=== PATIENT | male | born 1955 | race Caucasian/White ===

== ENCOUNTER → 2018-05-27 10:52 | Outpatient (CLI) | payer OTHER, SELFPAY ==
[2018-05-27 11:38] LABS: Add Manual Diff / Slide Review NO; Basophils Absolute Auto 0 /uL (0-100); Eosinophils Absolute Auto 100 /uL (0-450); Eosinophils Percent Auto 2.2 % (2-4); Hematocrit 43.1 % (41-53); Hemoglobin 14.7 g/dL (13.5-17.5); Lymphocytes Absolute Auto 1500 /uL (1100-4500); Lymphocytes Percent Auto 34.4 % (25-40); Mean Corpuscular HGB Conc 34.1 % (30-36); Mean Corpuscular Volume 87.9 fL (80-100); Monocytes Absolute Auto 400 /uL (0-900); Monocytes Percent Auto 9.5 % (3-14); Neutrophils Absolute Auto 2300 /uL (1500-7000); Neutrophils Percent Auto 52.9 % (50-75); Platelet Count 210 X10^3/uL (150-400); Red Cell Distribution Width 13.4 % (11.6-14.8); White Blood Cell Count 4.4 X10^3/uL (4.5-11.0)
[2018-05-27 12:04] LABS: Alanine Aminotransferase 41 IU/L (21-72); Albumin 4.8 g/dL (3.5-5.0); Albumin Globulin Ratio 1.5 (1.0-2.8); Alkaline Phosphatase 96 U/L (38-126); Aspartate Aminotransferase 37 IU/L (17-59); BUN Creatinine Ratio 12.2 (6-22); Bilirubin Total 1.7 mg/dL (0.2-1.3); Blood Urea Nitrogen 11 mg/dL (9-20); Calcium 9.2 mg/dL (8.4-10.2); Carbon Dioxide 28 mmol/L (22-32); Chloride 101 mmol/L (98-107); Cholesterol 157 mg/dL (140-199); Estimated Glomerular Filt Rate > 60.0 mL/min (>60); Globulin 3.1 g/dL (1.7-4.1); Glucose 123 mg/dL (80-110); HDL Cholesterol 64 mg/dL (40-60); HEMOLYSIS < 15 (0-50); LDL Cholesterol Calculated 75 mg/dL (<100); Potassium 3.8 mmol/L (3.4-5.1); Sodium 139 mmol/L (137-145); Total Protein 7.9 g/dL (6.3-8.2); Triglycerides 92 mg/dL (35-150)
[2018-05-27 12:33] LABS: Prostate Specific Antigen Scrn 0.536 ng/mL (0.1-4.0)
[2018-05-27 12:34] LABS: Thyroid Stimulating Hormone 0.32 uIU/mL (0.47-4.68)
== END ==
PROVIDERS: Family Provider Family Medicine; PCP Family Medicine; Visit Provider Family Medicine
DX: E78.2 Mixed hyperlipidemia (principal)
CPT/HCPCS: 36415; 80053; 80061; 84443; 85025; G0103

== ENCOUNTER → 2018-07-28 10:55 | Outpatient (CLI) | payer OTHER, SELFPAY ==
[2018-07-28 12:18] LABS: BUN Creatinine Ratio 13.3 (6-22); Blood Urea Nitrogen 12 mg/dL (9-20); Calcium 9.3 mg/dL (8.4-10.2); Carbon Dioxide 31 mmol/L (22-32); Chloride 104 mmol/L (98-107); Estimated Glomerular Filt Rate > 60.0 mL/min (>60); Glucose 101 mg/dL (80-110); HEMOLYSIS < 15 (0-50); Sodium 142 mmol/L (137-145)
[2018-07-28 12:52] LABS: Thyroid Stimulating Hormone 2.76 uIU/mL (0.47-4.68)
== END ==
PROVIDERS: Family Provider Family Medicine; PCP Family Medicine; Visit Provider Family Medicine
DX: E03.9 Hypothyroidism, unspecified (principal)
CPT/HCPCS: 36415; 80048; 84443

== ENCOUNTER → 2018-10-28 10:40 | Outpatient (CLI) | payer OTHER, SELFPAY ==
[2018-10-28 14:08] LABS: Thyroid Stimulating Hormone 6.66 uIU/mL (0.47-4.68)
== END ==
PROVIDERS: PCP Family Medicine; Visit Provider Family Medicine
DX: E03.9 Hypothyroidism, unspecified (principal)
CPT/HCPCS: 36415; 84443

== ENCOUNTER 2018-11-16 12:06 | Day surgery (SDC) | payer OTHER, SELFPAY ==
--- NOTE | 2018-11-16 | PATH_ITS ---
[facility] Accession Number: [id number] . 01 Material submitted: . colon - DESCENDING COLON POLYP AT 50CN . 02 Diagnosis: Descending Colon at 50 cm, Polyp: Tubular adenoma. MRV 11/17/2018 0946 Local . 02 Electronically signed: . Cecil Brewer MD, PhD, Pathologist NPI- [id number] . 01 Gross description: . DESCENDING COLON POLYP AT 50CN: Received in formalin is 1 fragment(s) of feng, soft tissue measuring 0.4 x 0.3 x 0.3 cm which is entirely submitted and submitted entirely in 1 cassette(s) /[facility] 11/16/2018 2111 Local . 02 Pathologist provided ICD-10: D12.4 . 02 CPT . 112519 Performed at: 01 [facility] [address] [id number] MD Jesús Moeller MD Phone: [phone] Performed at: 02 [facility] [place] [address] [place], [place] [id number] MD Natalee Cordova MD Phone: [phone]
[2018-11-16 12:43] VITALS: BP 157/101; PULSE 89; RESP 14; TEMP 36.4; O2SAT 94; BMI 26.6
[2018-11-16] MEDS: SODIUM CHLORIDE 0.9% 1,000 ML 200 ML IV (12:43)
--- NOTE | 2018-11-16 13:18 | PM.HP.1 ---
History of Present Illness History of Present Illness Date Patient Seen: 11/16/18 Time Patient Seen: 13:19 Chief complaint: [id number] SCREENING COLONOSCOPY Narrative: 63-year-old white male with 1 prior colonoscopy is unsure as to whether he has had any polyps in the past is here for screening colonoscopy. Patient is asymptomatic. Patient History Surgical History History of vasectomy Status post hemorrhoidectomy Social History household members: none Smoking Status: Never smoker Family & Social History Social History: household members none Tobacco & Substance use: Smoking Status Never smoker Meds Home Medications and Allergies Home Medications Medication Instructions Recorded Confirmed Type lisinopril 10 mg tablet 10 mg PO DAILY #90 tab 07/28/18 11/16/18 Rx rosuvastatin 20 mg tablet See Rx Instructions PO QDAY #90 tab 07/28/18 11/16/18 Rx lansoprazole 15 mg capsule,delayed 15 mg PO Q DAY #90 tab 09/28/18 11/16/18 Rx release levothyroxine 125 mcg tablet 125 mcg PO DAILY #90 tab 10/28/18 11/16/18 Rx clonazepam 0.5 mg PO DIRECTED 11/16/18 11/16/18 History Allergies Allergy/AdvReac Type Severity Reaction Status Date / Time No Known Drug Allergies Allergy Verified 11/16/18 12:50 Review of Systems Review of Systems ROS Unobtainable: All systems reviewed & are unremarkable except as noted in HPI and below Exam Vital Signs (past 8 hours): - 11/16/18 12:43 Temperature 97.6 F Pulse Rate 89 Respiratory Rate 14 Blood Pressure 157/101 H Pulse Oximetry 94 Oxygen Delivery Method Room Air Narrative Exam Narrative: Patient is alert and oriented with no complaints Lungs are clear with no rales or wheezes Heart regular rhythm no murmur Abdomen soft nontender no organomegaly no masses Rectal will be done at time of colonoscopy Assessment & Plan Assessment & Plan narrative: Asymptomatic patient here for a screening colonoscopy has no further questions he has had a prior colonoscopy
--- NOTE | 2018-11-16 13:52 | PM.OP.ENDO ---
Operative Date/Time/Diagnoses Date of procedure: 11/16/18 Time of procedure: 13:53 Pre-op diagnosis: Screening colonoscopy Post-op diagnosis: other (Polyp removed at 50 cm and submitted) Procedure & Clinicians Study performed: Total colonoscopy to the cecum with polypectomy at 50 cm Same procedure as scheduled: Yes Surgeon: Pedro Pablo Huffman Procedure Notes SCOAP/Timeout: This was done Procedure in detail: The patient was properly identified during surgical pause given a total of 4 mg of Versed and 200 micro g of fentanyl and remained comfortable throughout the procedure. The flexible fiberoptic colonoscope was inserted transanally to the cecum. Patient had 1 polyp identified at 50 cm which was removed with a cold snare retrieved and submitted. This was a 5-6 mm polyp in and appeared entirely benign. There was minimal bleeding with the polypectomy. Scope withdrawal time: 15 Sedation minutes: 25 Findings: polyp Specimen(s): other (Polyp at 50 cm) Complications: none Post-procedure Recommendations: Colonscopy in 3 years
[2018-11-16 13:59] VITALS: BP 126/81; PULSE 60; RESP 14; TEMP 36.6; O2SAT 95
[2018-11-16] MEDS: MIDAZOLAM 5 MG/5 ML VIAL IV (13:59)
[2018-11-16] MEDS: fentaNYL 250 MCG/5 ML INJ IV (14:00)
[2018-11-16 14:05] VITALS: BP 122/82; PULSE 60; RESP 14; O2SAT 93
[2018-11-16 14:10] VITALS: BP 117/83; PULSE 54; RESP 14; O2SAT 93
[2018-11-16 14:32] VITALS: BP 134/87; PULSE 54; RESP 16; TEMP 36.2; O2SAT 95
== END 2018-11-16 14:37 | disposition home or self-care (01) ==
PROVIDERS: Family Provider Family Medicine; PCP Family Medicine; Visit Provider Surgery
PROC: 0DJD8ZZ Inspection of Lower Intestinal Tract, Via Natural or Artificial Opening Endoscopic (ICD-10-PCS; CPT 45378; principal; 2018-11-16 13:45)
DX: Z12.11 Encounter for screening for malignant neoplasm of colon (principal); D12.4 Benign neoplasm of descending colon
CPT/HCPCS: 45385; 99152; J2250; J3010

== ENCOUNTER → 2018-12-28 13:11 | Outpatient (CLI) | payer OTHER, SELFPAY | PROVIDERS: PCP Family Medicine; Visit Provider Family Medicine | DX: E03.9 Hypothyroidism, unspecified (principal) | CPT/HCPCS: 36415; 84443 ==

== ENCOUNTER → 2020-01-11 07:08 | Outpatient (CLI) | payer MEDICARE, OTHER, SELFPAY ==
[2020-01-11 08:07] LABS: Add Manual Diff / Slide Review NO; Basophils Absolute Auto 100 /uL (0-100); Basophils Percent Auto 1.3 % (0-2); Eosinophils Absolute Auto 400 /uL (0-450); Eosinophils Percent Auto 7.8 % (2-4); Hematocrit 41.8 % (41-53); Lymphocytes Absolute Auto 2000 /uL (1100-4500); Lymphocytes Percent Auto 44.2 % (25-40); Mean Corpuscular HGB Conc 33.6 % (30-36); Mean Corpuscular Hemoglobin 30.1 PG (26-34); Mean Corpuscular Volume 89.8 fL (80-100); Monocytes Absolute Auto 500 /uL (0-900); Monocytes Percent Auto 12.1 % (3-14); Neutrophils Absolute Auto 1600 /uL (1500-7000); Neutrophils Percent Auto 34.6 % (50-75); Platelet Count 183 X10^3/uL (150-400); Red Blood Cell Count 4.66 X10^6/uL (4.5-5.9); Red Cell Distribution Width 13.1 % (11.6-14.8); White Blood Cell Count 4.5 X10^3/uL (4.5-11.0)
[2020-01-11 08:19] LABS: Alanine Aminotransferase 33 IU/L (<50); Albumin 4.2 g/dL (3.5-5.0); Albumin Globulin Ratio 1.4 (1.0-2.8); Alkaline Phosphatase 78 U/L (38-126); Aspartate Aminotransferase 34 IU/L (17-59); BUN Creatinine Ratio 18.1 (6-22); Bilirubin Total 1.1 mg/dL (0.2-1.3); Blood Urea Nitrogen 17 mg/dL (9-20); Carbon Dioxide 33 mmol/L (22-32); Chloride 103 mmol/L (98-107); Cholesterol 177 mg/dL (140-199); Estimated Glomerular Filt Rate > 60.0 mL/min (>60); Globulin 2.9 g/dL (1.7-4.1); Glucose 140 mg/dL (80-110); HDL Cholesterol 53 mg/dL (40-60); HEMOLYSIS < 15 (0-50); LDL Cholesterol Calculated 103 mg/dL (<100); Potassium 4.3 mmol/L (3.4-5.1); Sodium 139 mmol/L (137-145); Total Protein 7.1 g/dL (6.3-8.2); Triglycerides 107 mg/dL (35-150)
[2020-01-11 08:47] LABS: Prostate Specific Antigen Scrn 0.498 ng/mL (0.1-4.0)
[2020-01-11 09:13] LABS: Thyroid Stimulating Hormone 2.26 uIU/mL (0.47-4.68)
== END ==
PROVIDERS: PCP Family Medicine; Referring Provider Family Medicine; Visit Provider Family Medicine
DX: E03.9 Hypothyroidism, unspecified (principal); Z12.5 Encounter for screening for malignant neoplasm of prostate; E78.2 Mixed hyperlipidemia
CPT/HCPCS: 36415; 80053; 80061; 84443; 85025; G0103

== ENCOUNTER → 2020-01-13 10:52 | Outpatient (CLI) | payer MEDICARE, OTHER, SELFPAY ==
[2020-01-14 02:26] LABS: Hemoglobin A1C% w Est Avg Glu 6.5 % (4.0-6.0)
== END ==
PROVIDERS: PCP Family Medicine; Visit Provider Family Medicine
DX: R73.9 Hyperglycemia, unspecified (principal)
CPT/HCPCS: 83036

== ENCOUNTER → 2021-08-07 08:25 | Outpatient (CLI) | payer MEDICARE, OTHER, SELFPAY ==
[2021-08-07 09:57] LABS: Hemoglobin A1C% w Est Avg Glu 6.3 % (4.0-6.0)
[2021-08-07 10:20] LABS: Alanine Aminotransferase 34 IU/L (<50); Albumin 4.3 g/dL (3.5-5.0); Albumin Globulin Ratio 1.4 (1.0-2.8); Alkaline Phosphatase 78 U/L (38-126); Aspartate Aminotransferase 38 IU/L (17-59); BUN Creatinine Ratio 20.8 (6-22); Bilirubin Total 0.9 mg/dL (0.2-1.3); Blood Urea Nitrogen 21 mg/dL (9-20); Calcium 8.5 mg/dL (8.4-10.2); Carbon Dioxide 27 mmol/L (22-32); Chloride 105 mmol/L (98-107); Cholesterol 194 mg/dL (140-199); Estimated Glomerular Filt Rate > 60 mL/min (>60); Glucose 141 mg/dL (80-110); HDL Cholesterol 58 mg/dL (40-60); HEMOLYSIS < 15 (0-50); LDL Cholesterol Calculated 113 mg/dL (<100); Potassium 4.1 mmol/L (3.4-5.1); Sodium 140 mmol/L (137-145); Total Protein 7.3 g/dL (6.3-8.2); Triglycerides 116 mg/dL (35-150)
[2021-08-07 10:46] LABS: Prostate Specific Antigen Scrn 0.568 ng/mL (0.1-4.0)
[2021-08-07 10:48] LABS: Thyroid Stimulating Hormone 1.75 uIU/mL (0.47-4.68)
== END ==
PROVIDERS: PCP Family Medicine; Referring Provider Family Medicine; Visit Provider Family Medicine
DX: R73.9 Hyperglycemia, unspecified (principal); I10 Essential (primary) hypertension; Z12.5 Encounter for screening for malignant neoplasm of prostate; E03.9 Hypothyroidism, unspecified; E78.2 Mixed hyperlipidemia; F41.9 Anxiety disorder, unspecified
CPT/HCPCS: 36415; 80053; 80061; 83036; 84443; G0103

== ENCOUNTER 2022-02-12 07:49 | Day surgery (SDC) | payer MEDICARE, OTHER, SELFPAY ==
--- NOTE | 2022-02-12 | PATH_ITS ---
[facility] Accession Number: [id number] . 01 Material submitted: . colon - TRANSVERSE COLON . 01 Diagnosis: Transverse Colon, Biopsy: Tubular adenoma. DERRICK 02/14/2022 1129 Local . 01 Electronically signed: . Natalee Cordova MD, Pathologist NPI- [id number] . 01 Gross description: . TRANSVERSE COLON: Received in formalin are 2 fragment(s) of feng, soft tissue measuring 0.3 x 0.2 x 0.2 cm to 0.2 x 0.1 x 0.1 cm submitted entirely in 1 cassette(s) /CPE 02/13/2022 0852 Local . 01 Pathologist provided ICD-10: D12.3 . 01 CPT . 124442 Specimen Comment: A courtesy copy of this report has been sent to [phone] Performed at: 01 [facility] [address] [place] [address], [place], [place] [id number] MD Jesús Moeller MD Phone: [phone]
[2022-02-12 08:17] VITALS: BP 148/88; PULSE 65; RESP 16; TEMP 36.7; O2SAT 96
[2022-02-12 08:27] LABS: COVID19 -Nasal RAPID Negative (Negative)
[2022-02-12] MEDS: LACTATED RINGERS 1,000 ML 200 ML IV (08:38)
--- NOTE | 2022-02-12 09:08 | PM.HP.1 ---
History of Present Illness History of Present Illness Date Patient Seen: 02/12/22 Time Patient Seen: 09:08 Chief complaint: SCREENING COLONOSCOPY Narrative: The patient presents for colorectal screening. Most recent colonoscopy 2018 demonstrated 1 benign polyp. No personal or family history of colon cancer. On further history denies any recent gastrointestinal symptoms. No nausea, vomiting, abdominal pain, loss of appetite, unexplained weight loss, change in bowel habits, diarrhea, constipation, melena, hematochezia, or bright red blood per rectum. Patient History Medical History Chicken pox (~1960) Measles (~1960) Mumps (~1960) Surgical History History of vasectomy Status post hemorrhoidectomy Family & Social History Social History: household members none Tobacco & Substance use: Smoking Status Never smoker alcohol intake frequency 0-2 drinks per day Substance Use Type does not use Meds Home Medications and Allergies Home Medications Medication Instructions Recorded Confirmed Type lansoprazole 15 mg capsule,delayed See Rx Instructions .Route 07/17/21 02/12/22 Rx release .COMPLEX #90 caps levothyroxine 125 mcg tablet See Rx Instructions .Route 09/05/21 02/12/22 Rx .COMPLEX #90 tabs metoprolol succinate 25 mg 12.5 mg PO DAILY #90 tabs 09/05/21 02/12/22 Rx tablet,extended release 24 hr rosuvastatin 20 mg tablet See Rx Instructions .Route 09/05/21 02/12/22 Rx .COMPLEX #90 tabs lisinopril 20 mg tablet 20 mg PO DAILY #90 tabs 10/15/21 02/12/22 Rx sodium,potassium,mag sulfates 17.5 See Rx Instructions PO .COMPLEX 01/23/22 02/12/22 Rx gram-3.13 gram-1.6 gram oral soln #354 mL (Suprep Bowel Prep Kit) Allergies Allergy/AdvReac Type Severity Reaction Status Date / Time No Known Drug Allergies Allergy Verified 02/12/22 08:11 Exam Vital Signs (past 8 hours): - 02/12/22 08:17 Temperature 98.1 F Pulse Rate 65 Respiratory Rate 16 Blood Pressure 148/88 H Pulse Oximetry 96 Oxygen Delivery Method Room Air Oxygen Delivery Method Room Air Narrative Exam Narrative: General adult man alert oriented no acute distress Abdomen soft nontender nondistended Objective Labs Labs: Laboratory Results - last 24 hr 02/12/22 08:00 SARS-CoV-2 (PCR) Negative Assessment & Plan Assessment and plan (1) Personal history of colonic polyps: Status: Acute Assessment & Plan narrative: The patient requires colorectal screening and colonoscopy is recommended. Technical details were discussed. Risks, benefits, alternatives explained. Risks including but not limited to myocardial infarction, aspiration, bleeding, pain, missed lesion, incomplete examination, need for further radiographic studies, colonic perforation, and need for major abdominal surgery were discussed. All questions were answered to their satisfaction, and they are in agreement with this plan. Time Spent With Patient Critical Care time: I spent a total of [] minutes of critical care time on this patient's care today; this time is exclusive of procedural time.
--- NOTE | 2022-02-12 09:10 | PM.OP.COLON ---
Operative Date/Time/Diagnoses Date of procedure: 02/12/22 Time of procedure: 09:10 Pre-op diagnosis: Personal history of colonic polyps Post-op diagnosis: same Procedure & Clinicians Study performed: Colonoscopy Same procedure as scheduled: Yes Indications: Personal history of colonic polyps, colorectal screening Surgeon: Franko Armijo Procedure Notes Procedure in detail: The history and physical was performed/updated and the patient is ASA class is 2. The procedure was discussed in detail with the patient. Potential risks complications including infection, bleeding, missed diagnosis, perforation, need for surgery, and were explained. Their questions were answered and informed consent was obtained. Patient was brought to the procedure room and placed standard monitoring equipment. The patient's vital signs were monitored continuously throughout the entire procedure. Prior to starting time-out was performed. The patient was placed in the left lateral recumbent position. Procedural sedation was administered by anesthesia. Examination began with a thorough inspection of the perianal area there was no evidence of fissures, fistulae, external hemorrhoids or cutaneous malignancy. The colonoscopy scope was then placed into the anal canal and was advanced to the cecum, which was identified by the ileocecal valve, the appendiceal orifice and the confluence of the taenia. The scope was then slowly withdrawn examining colon thoroughly in all directions, irrigating it of any residual stool. FINDINGS 1. Transverse colon 5 mm polyp x 2 removed with biopsy forceps 2. Internal hemorrhoids The patient tolerated the procedure well. They will be discharged once criteria are met. The prep was of good/excellent quality. The withdrawl time was 7 minutes. Specimen(s): other (Transverse colonic polyps) Impression: Colonic polyps Post-procedure Recommendations: High fiber diet Plan for aftercare: Follow-up dependent on pathology findings Disposition: same day surgery
[2022-02-12 09:38] VITALS: BP 115/74; PULSE 53; RESP 17; TEMP 36.2; O2SAT 94
[2022-02-12 09:43] VITALS: BP 113/67; PULSE 53; RESP 12; O2SAT 98
[2022-02-12 09:48] VITALS: BP 140/102; PULSE 66; RESP 15; O2SAT 99
[2022-02-12 09:52] VITALS: BP 133/84; PULSE 55; RESP 13; TEMP 36.2; O2SAT 98
== END 2022-02-12 09:57 | disposition home or self-care (01) ==
PROVIDERS: PCP Family Medicine; Referring Provider Surgery; Visit Provider Surgery
PROC: 0DJD8ZZ Inspection of Lower Intestinal Tract, Via Natural or Artificial Opening Endoscopic (ICD-10-PCS; CPT 45378; principal; 2022-02-12 08:45)
DX: Z12.11 Encounter for screening for malignant neoplasm of colon (principal); Z86.010 Personal history of colon polyps; Z20.822 Contact with and (suspected) exposure to COVID-19; K64.8 Other hemorrhoids; D12.3 Benign neoplasm of transverse colon
CPT/HCPCS: 45380; 87635; C9803

== ENCOUNTER → 2023-03-17 12:05 | Outpatient (CLI) | payer MEDICARE, OTHER, SELFPAY ==
[2023-03-17 12:49] LABS: Add Manual Diff / Slide Review NO; Basophils Absolute Auto 0 /uL (0-100); Eosinophils Absolute Auto 200 /uL (0-450); Eosinophils Percent Auto 5.3 % (2-4); Hematocrit 42.4 % (41-53); Hemoglobin 14.7 g/dL (13.5-17.5); Lymphocytes Absolute Auto 1700 /uL (1100-4500); Lymphocytes Percent Auto 36.5 % (25-40); Mean Corpuscular HGB Conc 34.8 % (30-36); Mean Corpuscular Hemoglobin 30.9 PG (26-34); Monocytes Absolute Auto 500 /uL (0-900); Neutrophils Absolute Auto 2100 /uL (1500-7000); Neutrophils Percent Auto 46.2 % (50-75); Platelet Count 209 X10^3/uL (150-400); Red Blood Cell Count 4.76 X10^6/uL (4.5-5.9); Red Cell Distribution Width 13.9 % (11.6-14.8); White Blood Cell Count 4.6 X10^3/uL (4.5-11.0)
[2023-03-17 12:55] LABS: Hemoglobin A1C% w Est Avg Glu 5.8 % (4.0-6.0)
[2023-03-17 13:06] LABS: Alanine Aminotransferase 29 IU/L (<50); Albumin 4.5 g/dL (3.5-5.0); Albumin Globulin Ratio 1.5 (1.0-2.8); Alkaline Phosphatase 81 U/L (38-126); Aspartate Aminotransferase 34 IU/L (17-59); Bilirubin Total 1.2 mg/dL (0.2-1.3); Blood Urea Nitrogen 19 mg/dL (9-20); Calcium 9.6 mg/dL (8.4-10.2); Carbon Dioxide 31 mmol/L (22-32); Chloride 103 mmol/L (98-107); Cholesterol 194 mg/dL (140-199); Estimated Glomerular Filt Rate > 60 mL/min (>60); Globulin 3.1 g/dL (1.7-4.1); Glucose 115 mg/dL (80-110); HDL Cholesterol 60 mg/dL (40-60); HEMOLYSIS < 15 (0-50); LDL Cholesterol Calculated 108 mg/dL (<100); Potassium 4.8 mmol/L (3.4-5.1); Sodium 140 mmol/L (137-145); Total Protein 7.6 g/dL (6.3-8.2); Triglycerides 130 mg/dL (35-150)
[2023-03-17 13:36] LABS: TSH w/ Reflex to FT4 0.57 uIU/mL (0.47-4.68)
[2023-03-18 19:07] LABS: Creatinine Urine Random 179.5 mg/dL
[2023-03-18 19:34] LABS: Microalbumi Creatinin Ratio Ur 27.8 ug/mg CR (<30)
== END ==
PROVIDERS: PCP Family Medicine; Referring Provider Family Medicine; Visit Provider Family Medicine
DX: R73.9 Hyperglycemia, unspecified (principal); I10 Essential (primary) hypertension; E03.9 Hypothyroidism, unspecified; E78.2 Mixed hyperlipidemia; Z79.899 Other long term (current) drug therapy
CPT/HCPCS: 36415; 80053; 80061; 82043; 82570; 83036; 84443; 85025

== ENCOUNTER → 2023-09-18 16:23 | Outpatient (CLI) | payer MEDICARE, OTHER, SELFPAY | PROVIDERS: PCP Family Medicine; Referring Provider Family Medicine; Visit Provider Family Medicine | DX: Z12.5 Encounter for screening for malignant neoplasm of prostate (principal) | CPT/HCPCS: 36415; G0103 ==

== ENCOUNTER → 2024-01-17 09:08 | Outpatient (CLI) | payer MEDICARE, OTHER, SELFPAY ==
[2024-01-17 10:25] LABS: Alanine Aminotransferase 30 IU/L (<50); Albumin 3.9 g/dL (3.5-5.0); Albumin Globulin Ratio 1.5 (1.0-2.8); Alkaline Phosphatase 69 U/L (38-126); Aspartate Aminotransferase 33 IU/L (17-59); BUN Creatinine Ratio 16.8 (6-22); Bilirubin Total 1.3 mg/dL (0.2-1.3); Blood Urea Nitrogen 19 mg/dL (9-20); Calcium 8.9 mg/dL (8.4-10.2); Carbon Dioxide 28 mmol/L (22-32); Chloride 107 mmol/L (98-107); Estimated Glomerular Filt Rate > 60 mL/min (>60); Globulin 2.6 g/dL (1.7-4.1); Glucose 141 mg/dL (80-110); HEMOLYSIS < 15 (0-50); Potassium 4.2 mmol/L (3.4-5.1); Sodium 140 mmol/L (137-145); Total Protein 6.5 g/dL (6.3-8.2)
[2024-01-17 10:29] LABS: Hemoglobin A1C% w Est Avg Glu 5.8 % (4.0-6.0)
== END ==
PROVIDERS: PCP Family Medicine; Referring Provider Family Medicine; Visit Provider Family Medicine
DX: R73.9 Hyperglycemia, unspecified (principal); I10 Essential (primary) hypertension; E03.9 Hypothyroidism, unspecified; E78.2 Mixed hyperlipidemia
CPT/HCPCS: 36415; 80053; 83036

== ENCOUNTER → 2024-03-29 09:22 | Outpatient (CLI) | payer MEDICARE, OTHER, SELFPAY ==
[2024-03-29 09:59] LABS: Add Manual Diff / Slide Review NO; Basophils Absolute Auto 0 /uL (0-100); Eosinophils Absolute Auto 300 /uL (0-450); Lymphocytes Absolute Auto 1300 /uL (1100-4500); Lymphocytes Percent Auto 37.8 % (25-40); Mean Corpuscular HGB Conc 34.1 % (30-36); Mean Corpuscular Volume 87.9 fL (80-100); Monocytes Absolute Auto 300 /uL (0-900); Monocytes Percent Auto 9.6 % (3-14); Neutrophils Absolute Auto 1500 /uL (1500-7000); Neutrophils Percent Auto 43.6 % (50-75); Platelet Count 190 X10^3/uL (150-400); Red Blood Cell Count 4.66 X10^6/uL (4.5-5.9); Red Cell Distribution Width 13.1 % (11.6-14.8); White Blood Cell Count 3.5 X10^3/uL (4.5-11.0)
[2024-03-29 10:18] LABS: Hemoglobin A1C% w Est Avg Glu 5.8 % (4.0-6.0)
[2024-03-29 10:46] LABS: Alanine Aminotransferase 34 IU/L (<50); Albumin 4.4 g/dL (3.5-5.0); Albumin Globulin Ratio 1.7 (1.0-2.8); Alkaline Phosphatase 84 U/L (38-126); Aspartate Aminotransferase 41 IU/L (17-59); BUN Creatinine Ratio 12.9 (6-22); Bilirubin Total 2.1 mg/dL (0.2-1.3); Blood Urea Nitrogen 13 mg/dL (9-20); Calcium 9.1 mg/dL (8.4-10.2); Carbon Dioxide 25 mmol/L (22-32); Chloride 104 mmol/L (98-107); Cholesterol 178 mg/dL (140-199); Estimated Glomerular Filt Rate > 60 mL/min (>60); Globulin 2.6 g/dL (1.7-4.1); Glucose 127 mg/dL (80-110); HDL Cholesterol 70 mg/dL (40-60); HEMOLYSIS < 15 (0-50); LDL Cholesterol Calculated 98 mg/dL (<100); Potassium 4.2 mmol/L (3.4-5.1); Sodium 139 mmol/L (137-145); Triglycerides 50 mg/dL (35-150)
[2024-03-29 11:45] LABS: Free T4, Direct Thyroxine 1.86 ng/dL (0.78-2.19)
[2024-03-29 18:30] LABS: Creatinine Urine Random 184.61 mg/dL
[2024-03-29 18:34] LABS: Microalbumin Urine Random 2.8 mg/dL (0-1.6)
[2024-03-30 05:18] LABS: Apolipoprotein B 77 mg/dL (<90)
== END ==
PROVIDERS: PCP Family Medicine; Referring Provider Family Medicine; Visit Provider Family Medicine
DX: I10 Essential (primary) hypertension (principal); R73.9 Hyperglycemia, unspecified; F41.9 Anxiety disorder, unspecified; E03.9 Hypothyroidism, unspecified; E78.2 Mixed hyperlipidemia
CPT/HCPCS: 36415; 80053; 80061; 82043; 82172; 82570; 83036; 84439; 84443; 85025